=== PATIENT | male | born 1985 | race Caucasian/White ===

== ENCOUNTER → 2022-10-08 | Day surgery (SDC) | payer OTHER ==
[~2022-10-08] VITALS: Ht 177.8 cm; Wt 82.7 kg
[~2022-10-08] MED LIST: ALBU18HF12 IH; ALBUTEROL SULFATE 2.5 MG/0.5 ML NEB SOLUTION NEB ONE; BECL10.6 IH; BECL10.62 IH; BENZOCAINE 20% 50 MCG/SPRAY 57 GM TP ONE; CHOL25TA4 PO; DOXY-469 PO; DOXY75CA5 PO; ESCI10 PO; FAMO20 PO; FentaNYL CITRATE PF 100 MCG/2 ML VIAL ONE; LIDOCAINE 2% 11 ML JELLY TP ONE; LIDOCAINE 4% 50 ML SOLUTION TP ONE; LOSA-381 PO; MIDAZOLAM HCL 2 MG/2 ML VIAL ONE; MethylPREDNISolone SOD SUCC 125 MG/2 ML VIAL IVP ONE; MethylPREDNISolone SOD SUCC 125 MG/2 ML VIAL ONE; OMEP20CA12 PO; ONDANSETRON HCL 4 MG TABLET PO ONE; ONDANSETRON HCL 4 MG/2 ML VIAL IVP ONE; ONDANSETRON HCL 4 MG/2 ML VIAL ONE; PRED-729 PO; SODIUM CHLORIDE 0.9% 1,000 ML IV ONE
== END | disposition still patient (30) ==
LOC: SURGERY 06:15
PROVIDERS: ATTEND Internal Medicine Critical Care Medicine
DX: R05.3 Chronic cough (principal); R91.1 Solitary pulmonary nodule; J98.09 Other diseases of bronchus, not elsewhere classified; J98.8 Other specified respiratory disorders; Z98.890 Other specified postprocedural states
CPT/HCPCS: 31623; 88112; 87206; 87101; 87220; 87070; 31624; 94640; 71045; 71250; 87015; J3010; J2250; J2930; J2405; Q9967; Q0162; J7613; Z7610